=== PATIENT | female | born 1960 | race Caucasian/White ===

== ENCOUNTER 2017-04-16 16:01 | Emergency (ER) | payer OTHER ==
[~2017-04-16] VITALS: Ht 152.4 cm; Wt 65.3 kg
[2017-04-16 17:43] VITALS: BP 155/97
== END 2017-04-16 17:43 | disposition home or self-care (01) ==
LOC: ED 16:01
DX: G89.29 Other chronic pain (principal); M79.605 Pain in left leg; M79.1 Myalgia; M54.9 Dorsalgia, unspecified; R03.0 Elevated blood-pressure reading, without diagnosis of hypertension

== ENCOUNTER 2018-01-15 20:47 | Emergency (ER) | payer OTHER ==
[~2018-01-15] VITALS: Ht 152.4 cm; Wt 65.5 kg
[2018-01-15 20:55] VITALS: Ht 152.4 cm; Wt 65.5 kg
[2018-01-15 22:20] VITALS: BP 153/89
== END 2018-01-15 22:46 | disposition home or self-care (01) ==
LOC: ED 20:47
DX: N39.0 Urinary tract infection, site not specified (principal); I10 Essential (primary) hypertension

== ENCOUNTER 2020-05-27 12:16 | Emergency (ER) | payer OTHER ==
[~2020-05-27] VITALS: Ht 152.4 cm; Wt 62.6 kg
[2020-05-27 12:47] VITALS: Ht 152.4 cm; Wt 62.6 kg
[2020-05-27 16:42] VITALS: BP 146/93
== END 2020-05-27 16:42 | disposition home or self-care (01) ==
LOC: ED 12:16
DX: S49.91XA Unspecified injury of right shoulder and upper arm, initial encounter (principal); M75.31 Calcific tendinitis of right shoulder; I10 Essential (primary) hypertension; W01.0XXA Fall on same level from slipping, tripping and stumbling without subsequent striking against object, initial encounter; Y93.89 Activity, other specified; Y92.89 Other specified places as the place of occurrence of the external cause; Y99.8 Other external cause status